=== PATIENT | female | born 1970 | race Asian ===

== ENCOUNTER 2017-04-30 14:11 | Inpatient (IN) | payer OTHER ==
[~2017-04-30] VITALS: Ht 157.5 cm; Wt 65.5 kg
[2017-04-30 14:26] VITALS: Ht 157.5 cm; Wt 65.5 kg
[2017-04-30 15:30] LABS: BASOPHIL % 0.7 % (0-2); PLATELET COUNT 244 x10^3mcL (130-400)
[2017-04-30 15:42] LABS: CALCIUM 8.6 mg/dL (8.5-10.1); CHLORIDE SERUM 105 mmol/L (98-107); CREATININE SERUM 0.7 mg/dL (0.6-1.0); GFR1 > 60 mL/min; GLUCOSE SERUM 124 mg/dL (74-106); POTASSIUM SERUM 4.3 mmol/L (3.5-5.1); SODIUM SERUM 141 mmol/L (136-145)
[2017-04-30 15:46] LABS: ALBUMIN 2.9 g/dL (3.4-5.0); ALKALINE PHOSPHATASE 116 U/L (46-116); ALT/SGPT 89 U/L (14-59); AST/SGOT 82 U/L (15-37); BILIRUBIN TOTAL 0.74 mg/dL (0.20-1.00); TOTAL PROTEIN, SERUM 7.7 g/dL (6.4-8.2)
[2017-04-30 19:26] LABS: PHOSPHOROUS 3.4 mg/dL (2.5-4.9)
[2017-04-30 19:28] LABS: CHOLESTEROL/HDL RATIO 3.5; T3 TOTAL 0.98 ng/mL
[2017-04-30 19:33] LABS: FREE T4 1.69 ng/dL (0.76-1.46); FREE THYROXINE INDEX 3.3 ug/dL (1.4-4.5); T4(THYROXINE) 9.8 ug/dL (4.7-13.3)
[2017-04-30 20:25] LABS: IRON 26 ug/dL (50-170); TOTAL IRON BINDING CAPACITY 302 ug/dL (250-450)
[2017-04-30 21:02] VITALS: BP 134/98
[2017-04-30 21:11] LABS: RED BLOOD CELLS 3.46 M/mm3 (4.10-5.10)
[2017-05-01 05:52] VITALS: BP 136/98
[2017-05-01 05:54] VITALS: BP 136/98
[2017-05-01 07:34] LABS: BASOPHIL % 0.5 % (0-2); PLATELET COUNT 191 x10^3mcL (130-400)
[2017-05-01 07:50] LABS: CARBON DIOXIDE 20.3 mmol/L (21-32); CHLORIDE SERUM 106 mmol/L (98-107); CREATININE SERUM 0.7 mg/dL (0.6-1.0); GFR1 > 60 mL/min; GLUCOSE SERUM 138 mg/dL (74-106); MAGNESIUM 1.9 mg/dL (1.8-2.4); PHOSPHOROUS 3.4 mg/dL (2.5-4.9); POTASSIUM SERUM 4.3 mmol/L (3.5-5.1); SODIUM SERUM 140 mmol/L (136-145)
[2017-05-01 07:59] LABS: UA SPECIFIC GRAVITY >=1.030 (1.005-1.035); microscopic required? YES; urine erythrocyte 2+ (NEGATIVE)
[2017-05-01 08:57] LABS: AMPHETAMINE QUAL UR NONE DETECTED (NEG <=1000)
[2017-05-01 09:42] VITALS: BP 147/100
[2017-05-01 13:15] VITALS: BP 140/99
[2017-05-01] MEDS ORDERED: FERG PO (16:36)
[2017-05-01] MEDS ORDERED: ZES5 PO (16:37)
[2017-05-01] MEDS ORDERED: LIPI10 PO (16:37)
[2017-05-01] MEDS ORDERED: NIT0.4 SL (16:37)
[2017-05-01] MEDS ORDERED: METOPROLOL TART25 M1 PO (16:37)
[2017-05-01] MEDS ORDERED: APAP/HYDROCODON1 T13 PO (16:38)
[2017-05-01] MEDS ORDERED: ECO81 PO (16:38)
[2017-05-01] MEDS ORDERED: TYL325 PO (16:41)
[2017-05-01] MEDS ORDERED: ZOFI IV (16:41)
[2017-05-01 17:43] VITALS: BP 125/85
[2017-05-01 18:27] VITALS: BP 125/85
== END 2017-05-01 19:00 | disposition short-term general hospital (02) | DRG 204 ==
LOC: EDBD 14:11 → ED 14:11 → DU 18:43
PROVIDERS: Emergency Medicine; Family Medicine
DX: R91.8 Other nonspecific abnormal finding of lung field (principal); N17.0 Acute kidney failure with tubular necrosis; J96.00 Acute respiratory failure, unspecified whether with hypoxia or hypercapnia; E44.0 Moderate protein-calorie malnutrition; I31.3 Pericardial effusion (noninflammatory); D64.9 Anemia, unspecified; D63.1 Anemia in chronic kidney disease; D63.8 Anemia in other chronic diseases classified elsewhere; K76.0 Fatty (change of) liver, not elsewhere classified; Z80.1 Family history of malignant neoplasm of trachea, bronchus and lung; Z68.26 Body mass index [BMI] 26.0-26.9, adult
CPT/HCPCS: 83880; 84439; 87804; J1956; J2405; J7030; Q0092; Q9967